=== PATIENT | female | born 1950 | race Caucasian/White ===

== ENCOUNTER → 2017-05-05 | Outpatient (CLI) | payer MEDICARE, BC ==
[~2017-05-05] MED LIST: ALB17R INH; AZEL50FO TOP; CEP500 PO; CETI-169 PO; DESO60CR TP; DIP25 PO; ESTR10TA4 VG; FLU100 PO; FLUO20DR3 OT; FLUT16SP19 NS; INDO25OR3 PO; LEV25 PO; LEVO75TA73 PO; LEVOTHYROXIN; LORA-630 PO; METR-160 PO; METR45CR10 TP; NIT100 PO; NYST15CR32 TP; PANT40TA65 PO; PROB500T31 PO; RANI-318 PO; SULF-198 PO; TACR100O5 TP; TRIA15CR40 TP; ZOLP-360 PO; [UNRECOGNIZED DRUG - CODE] PO; [UNRECOGNIZED DRUG - CODE] TOP; [UNRECOGNIZED DRUG - CODE] TP
--- NOTE | 2017-05-07 11:41 | RADIOLOGY IMAGING REPORT ---
FACILITY: [facility] - [place] PATIENT NAME: JORDY ODOM : [id number] MR: [id number] V: [id number] EXAM DATE: [id number] ORDERING PHYSICIAN: KADE RODRÍGUEZ TECHNOLOGIST: Janet Menezes PROCEDURE:BILATERAL DIGITAL SCREENING MAMMOGRAM WITH CAD ASSISTED INTERPRETATION & 3D BREAST TOMOSYNTHYSIS COMPARISON:Prior mammograms 05/04/16, 05/02/15, 05/01/14, 04/25/13, 04/11/12, 04/07/11. INDICATIONS:screening FINDINGS: Moderately dense fibroglandular tissue is seen throughout the breasts. The parenchymal pattern has remained stable when allowing for difference in mammographic technique & patient positioning. There is no evidence of malignant appearing mass, malignant appearing calcification or secondary sign of malignancy in either breast. DIAGNOSTIC CATEGORY 1--NEGATIVE. RECOMMENDATIONS: ROUTINE MAMMOGRAM AND CLINICAL EVALUATION. IMPRESSION: BIRADS 1: Negative 1. No significant abnormality is seen Dictated by: Alexia Hardy M.D. on 05/05/2017 at 16:30 Transcribed by: SANDY on 05/06/2017 at 14:36 Approved by: Alexia Hardy M.D. on 05/07/2017 at 11:40 [facility]
== END ==
LOC: MAMO 00:52
PROVIDERS: ATTEND Nurse Practitioner Family
DX: Z12.31 Encounter for screening mammogram for malignant neoplasm of breast (principal)
CPT/HCPCS: 77063; 77067

== ENCOUNTER → 2018-03-22 | Outpatient (CLI) | payer MEDICARE, BC ==
[~2018-03-22] MED LIST changes: -METR-160 PO; +METR500T54 PO
[2018-03-22 10:59] LABS: PLATELET COUNT, AUTOMATED 254 K/uL (150-450)
== END ==
LOC: LAB 10:32
PROVIDERS: ATTEND Nurse Practitioner Family
DX: M10.9 Gout, unspecified (principal); E03.9 Hypothyroidism, unspecified; E78.5 Hyperlipidemia, unspecified; K21.9 Gastro-esophageal reflux disease without esophagitis
CPT/HCPCS: 36415; 82040; 82247; 82310; 82374; 82435; 82465; 82565; 82947; 83718; 84075; 84132; 84155; 84295; 84443; 84450; 84460; 84478; 84520; 84550; 85025

== ENCOUNTER → 2018-04-19 | Outpatient (CLI) | payer MEDICARE, OTHER ==
--- NOTE | 2018-04-19 13:10 | RADIOLOGY IMAGING REPORT ---
FACILITY: [facility] PATIENT NAME: Leona Carrillo : 1950 MR: [id number] V: [id number] EXAM DATE: ORDERING PHYSICIAN: MERNA COLLADO TECHNOLOGIST: Location: [facility] Patient: Leona Carrillo : 1950 Visit/Account:[id number] Date of Sevice: 04/19/2018 TRANSVAGINAL NON-OB HISTORY: Pelvic pain on the right EXAMINATION: Transabdominal and transvaginal pelvic ultrasound with duplex Doppler evaluation. COMPARISON: CT scan from 03/31/2018 FINDINGS: Uterus: 4.3 x 2.6 x 2.7 cm. Hypoattenuated 1.3 x 1.5 cm uterine mass likely representing fibroid in the posterior fundal aspect of the uterus Myometrium: negative Endometrium: 1 mm. No endometrial mass lesion. No abnormal fluid Cervix: negative Ovaries: Right ovary measuring 1.9 x 1.4 x 0.6 cm. Left ovary measuring 1.5 x 1.3 x 1.7 cm. Blood flow is documented in each ovary by duplex Doppler ultrasound. Adnexa: No abnormal adnexal masses. Free pelvic fluid: none IMPRESSION: 1. Unremarkable pelvic ultrasound for acute pathology. 2. Uterine fibroid. Report Dictated By: Darrius Ro MD at 04/19/2018 12:50 PM Report E-Signed By: Darrius Ro MD at 04/19/2018 1:05 PM WSN:[email or web address]
== END ==
LOC: US 01:04
PROVIDERS: ATTEND Nurse Practitioner Family
DX: D25.9 Leiomyoma of uterus, unspecified (principal); N83.202 Unspecified ovarian cyst, left side; R10.32 Left lower quadrant pain; R14.0 Abdominal distension (gaseous)
CPT/HCPCS: 36415; 76830; 86304

== ENCOUNTER → 2018-05-31 | Outpatient (CLI) | payer MEDICARE, OTHER ==
[~2018-05-31] MED LIST changes: +METR500T15 PO; -METR500T54 PO
--- NOTE | 2018-06-03 09:45 | RADIOLOGY IMAGING REPORT ---
FACILITY: [facility] - [place] PATIENT NAME: JORDY ODOM : [id number] MR: [id number] V: [id number] EXAM DATE: [id number] ORDERING PHYSICIAN: KADE RODRÍGUEZ TECHNOLOGIST: Janet Menezes PROCEDURE:BILATERAL DIGITAL SCREENING MAMMOGRAM WITH CAD ASSISTED INTERPRETATION & 3D TOMOSYNTHESIS COMPARISON:Prior mammograms dated 05/05/17, 05/04/16, 05/02/15, 05/01/14, 04/25/13, 04/11/12 INDICATIONS:screening FINDINGS: The breasts are heterogeneously dense which can obscure small masses. The parenchymal pattern has remained stable allowing for difference in mammographic technique & patient positioning. DIAGNOSTIC CATEGORY 1--NEGATIVE. RECOMMENDATIONS: ROUTINE MAMMOGRAM AND CLINICAL EVALUATION. IMPRESSION: BIRADS 1: Negative. No significant abnormality is seen. Dictated by: Alexia Hardy M.D. on 06/01/2018 at 17:18 Transcribed by: LUANA on 06/02/2018 at 13:53 Approved by: Alexia Hardy M.D. on 06/03/2018 at 9:43 [facility]
== END ==
LOC: MAMO 00:52
PROVIDERS: ATTEND Nurse Practitioner Family
DX: Z12.31 Encounter for screening mammogram for malignant neoplasm of breast (principal)
CPT/HCPCS: 77063; 77067